=== PATIENT | female | born 1945 | race Caucasian/White ===

== ENCOUNTER 2020-10-03 09:07 | Day surgery (SDC) | payer MEDICARE, OTHER, SELFPAY ==
--- NOTE | 2020-10-03 07:54 | P.OP_ITS ---
Operative Date/Time/Diagnoses Date of procedure: 10/03/20 Time of procedure: 10:45 Procedure & Clinicians Procedure: Preoperative diagnoses: 1. Complex left significant nuclear sclerotic cataract with small pupil and poor red reflex. Capsular dye needed 2. Astigmatism which is to be corrected with a toric intraocular lens implant. 3. Hypothyroidism 4. Rosacea 5. Osteoarthritis Postoperative diagnoses: 1.Complex left Cataract removal with phacoemulsification with toric posterior chamber intraocular lens implant placed. Procedure: Phacoemulsification with posterior chamber toric intraocular lens implant. Surgeon: Theresa Maria MD Complications: None Specimen: None Implant: [id number] [place] 120 Blood loss: None Anesthesia: Retrobulbar with monitored standby Description of procedure: Patient presents with a complaint of decreased vision due to cataract which is affecting activities of daily living both her driving and reading. The patient wants surgery to improve vision and astigmatism. She had previous right cataract surgery more than 10 years ago. She chooses a distance astigmatism correcting intraocular lens. She understands the extra risk of surgery during the COVID-19 epidemic and wishes to proceed. She has tested negative for COVID-19 via active iris within 72 hours of the procedure. She is a relatively poor dilator and has a poor red reflex and therefore it was felt best to use capsular dye for extra safety during surgery. She also has a very deep set eye. The patient was taken to the operating room and proparacaine drops placed. Indelible ink dillard were placed at the 90 and 180 degree meridian. The patient was placed on the operating room table and given IV sedation. A retrobulbar block insert consisting of 6 cc of 2% xylocaine without epinephrine mixed half and half with 0.5% Marcaine with 1 cc of hyaluronidase added is placed between the medial and lateral 1/3 of the inferior orbital rim. The eye is manually massaged for 30 sec, prepped using Betadine solution, and draped in the usual sterile fashion. Temporal approach was made, a 1 mm side-port incision was made 90? from the proposed corneal wound. Phenylephrine 1.5% mixed with 1% xylocaine 0.2 cc was placed into the anterior chamber. An air bubble was placed followed by visidyne capsular dye. BSS was used to irrigate out the air bubble. Viscoat followed by Healon was then placed. A 2.6 mm clear incision with a 2.6 mm blade was timmy candice at the 170 degree meridian. A 360 degree capsulorrhexis style capsulotomy was then performed with a cystitome needle on a Healon greatly aided by the capsular dye and was due to the dye also able to extend capsulorrhexis to extent of her pupil dilation of about 5.5 mm. Hydrodelineation and hydrodissection were performed. The phacoemulsification unit is introduced, and sculpting used to groove the central lens. It is then removed in chopping mode. Epi nucleus is removed with epinuclear mode and irrigation aspiration was used to remove the peripheral cortex. The posterior capsule is polished. The intraocular lens is selected, inspected, power confirmed, and placed in the posterior chamber at the desired meridian of 120?. The pupil was not constricted. The wound was stromally hydrated and tested for leaks, there was none and it was left sutureless. Vigamox 0.1 cc was placed into the anterior chamber. Kenalog 0.2 cc was placed in the superior subconjunctival space. A drop of antibiotic and was placed and the eye was patched and shielded. The patient was stable and returned to the recovery room in excellent condition. Dictated by: Theresa Maria MD Copy to: [facility] Same procedure as scheduled: Yes
--- NOTE | 2020-10-03 07:54 | PM.PREOP ---
Pre-operative Note COVID-19 COVID-19 status: Negative Result date/Date tested (Pos, Neg/Pending): 10/03/20 Interval Note History & Physical reviewed/Exam performed by Physician: Yes Changes to H&P: No H&P completed within 30 days and has changed as indicated here:: Rapid COVID test performed morning of surgery and was negative.
[2020-10-03 09:58] VITALS: BMI 20.1
[2020-10-03] MEDS: PROPARACAINE 0.5% OPHTH SOL 2 DROPS EYE-OP ×2 (10:13→11:20)
[2020-10-03] MEDS: CATARACT EYE COMPOUND (10 DROPS/SYRINGE) 3 DROPS EYE-OP (10:14)
[2020-10-03 10:22] LABS: COVID19 -Nasal RAPID Negative (Negative)
[2020-10-03 10:44] VITALS: BP 125/66; PULSE 56; RESP 14; TEMP 36.1; O2SAT 97
[2020-10-03 10:49] VITALS: BMI 20.1
[2020-10-03] MEDS: CHONDROIDTIN/SOD HYALURONATE 1.05 ML SYRINGE INTRAOCULA (11:17)
[2020-10-03] MEDS: TRIAMCINOLONE 50 MG/5 ML VIAL INJ (11:18)
[2020-10-03] MEDS: MOXIFLOXACIN INJ 4 MG/0.8 ML VIAL 0.5 MG EYE-OP (11:18)
[2020-10-03] MEDS: ERYTHROMYCIN OPHTH 1 GM OINT 1 APPLIC EYE-LEFT (11:18)
[2020-10-03] MEDS: PHENYLEPHRINE/LIDOCAINE VIAL (OR) 0.2 ML EYE-OP (11:18)
[2020-10-03] MEDS: HYALURONATE SODIUM 10 MG/ML SYRINGE INJ (11:18)
[2020-10-03] MEDS: BALANCED SALT IRRIG SOLN NO.2 500 ML, EPINEPHrine 1 MG IRR (11:19)
[2020-10-03] MEDS: LIDOCAINE 2% 4 ML, BUPIVACAINE 0.5% (PF) 4 ML, HYALURONIDASE 150 UNIT INJ (11:20)
[2020-10-03 11:51] VITALS: BP 109/63; PULSE 55; RESP 14; TEMP 36.8; O2SAT 100
== END 2020-10-03 12:03 | disposition home or self-care (01) ==
PROVIDERS: PCP Registered Nurse; Referring Provider Ophthalmology; Visit Provider Ophthalmology
PROC: (CPT 66984; principal; 2020-10-03 10:45)
DX: H25.12 Age-related nuclear cataract, left eye (principal); Z20.822 Contact with and (suspected) exposure to COVID-19; H52.202 Unspecified astigmatism, left eye; E03.9 Hypothyroidism, unspecified
CPT/HCPCS: 66984; 87635; J0171; J2704; J3301; J3470; V2787

== ENCOUNTER → 2023-04-07 09:35 | Outpatient (CLI) | payer MEDICARE, OTHER, SELFPAY ==
--- NOTE | 2023-04-07 09:40 | DI.RAD.S_ITS ---
PROCEDURE: FL BARIUM SWALLOW W SPEECH INDICATIONS: Dysphagia, unspecified COMPARISON: None. TECHNIQUE: Examination was conducted in conjunction with speech pathology per standard protocol. In the lateral projection, filming was performed of the patient swallowing. AP projection filming may also be performed with patient swallowing. COMPARISON: FINDINGS: Function: No laryngeal penetration or aspiration. No pathologic vallecular pooling. Morphology: No cricopharyngeal bar is identified. No cervical esophageal webs. No Zenker's diverticulum. No strictures. IMPRESSION: No laryngeal penetration or aspiration. Please see separate speech pathologist's report. Dictated by: Ata Chand M.D. on 04/07/2023 at 13:27 Approved by: Ata Chand M.D. on 04/07/2023 at 13:28
--- NOTE | 2023-04-08 13:12 | ST.SWALLOW ---
Visit Care Team Role Provider Type HILTON Jackson Primary Care Provider Non-Staff Specialty: Medical Address: [address] , [place], [address] Email: Derek Alvarado MD Attending Provider Non-Staff Referring Provider Specialty: Internal Medicine Address: [address], [place], [address] Email: Modified Barium Swallow Study [employer] Modified Barium Swallow Study Start: 04/07/23 12:16 Freq: Status: Active Protocol: Document 04/07/23 09:10 CG (Rec: 04/08/23 11:40 CG [id number]) Modified Barium Swallow Study Total Time Visit Start Time 10:00 Visit Stop Time 10:30 Total Visit Minutes 30 Visit Information Visit Number [address] Derek Alvarado Reason for Referral mild sx aspiration/dysphagia Setting Setting Outpatient Care Patient Information Identification Type Name Patient History The pt is a 77-year-old female referred for an MBS by Dr. Derek Alvarado due to mild aspiration symptoms. The pt describes her symptoms as occuring only about once per month, but she wanted to be proactive in evaluating her swallow. She states that sometimes she will have a drink of water and feel that it goes down the wrong tube. This will cause her to cough , which she says resolves the issue. She also states that she occasionally has the sensation of solids being stuck in her throat. She states she usually coughs to try to clear this and it is most often resolved by a liquid wash. Sometimes, she states that food or liquid will come through her nose when trying to cough/clear. The pt states that these symptoms have been present for the last 6-8 months. She does not feel that the symptoms have worsened, but have remained steady. She says she is not sure if certain foods or liquids exacerbate her symptoms more than others. 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 She also reports a history of radiculopathy and pain in her left side, related to degenerative disc disease in her neck. Though she does not have a diagnosis of GERD, she states she suspects it and often will take Tums for heartburn. She denies any history of surgery in the neck or throat, and denies any history of neurological diagnoses. Subjective Observations The pt arrived on time to her appointment, which she attended independently. She was alert, oriented, communicative, and cooperative throughout the assessment. She was able to easily understand and follow multi- step directions throughout assessment. No baseline symptoms of note (no cough, tremor, s/sx cognitive impairment, etc). Patient Positioning Position View Lat-A/P Imaging Lateral View Textures Administered Trials Presented Thin Liquid via Spoon (IDDSI 0 ),Thin Liquid via Cup (IDDSI 0 ),Mildly Thick Liquid via Spoon (IDDSI 2),Mildly Thick Liquid via Cup (IDDSI 2), Extremely Thick Liquid via Spoon (IDDSI 4),Regular (IDDSI 7) Barium Tablet Yes The IDDSI Framework Protocol: IDDSI.1 Oral Impairment Source: The Modified Barium Swallow Impairment Profile (MBSImP??) Lip Closure No labial escape Tongue Control During Bolus Hold Posterior escape of less than half of bolus Bolus Transport/Lingual Motion Slowed tongue motion Oral Residue Residue collection on oral structures Location Tongue Initiation of Pharyngeal Swallow Bolus head at pyriforms Additional Oral Impairment Observations Of note, the pt demonstrated posterior escape of bolus across multiple trials, particularly with thin consistencies. Tongue motion/ A-P propulsion was typically brisk; however, it was slowed with pudding consistency. Oral residue was present along the posterior tongue blade and base of tongue after the swallow. Swallow initiation was delayed across multiple trials, but was most prominent during larger volume bolus swallows and during sequential swallows. Swallow initiation timing appeared to improve with thicker liquid consistencies and with smaller boluses. Functional implications: Weakened lingual muscles resulted in lingual residue, requiring multiple swallows to fully clear the oral cavity. Posterior escape of the bolus combined with delayed initiation of the pharyngeal swallow resulted in the bolus pooling in the pharynx prior to the pharyngeal swallow. This would have a cascading effect resulting in mild flash penetration during the early swallow due to pooled bolus entering the laryngeal vestibule briefly before being squeexed out at height of the swallow (see Additional Pharyngeal Impairment Observations). Based on pt improved performance with smaller boluses, small sips/reduced bolus size with thin liquids is implicated as a possible compensatory strategy. Pharyngeal Impairment Source: The Modified Barium Swallow Impairment Profile (MBSImP??) Soft Palate Elevation Trace column of contrast between soft palate & pharyngeal wall Laryngeal Elevation Part.sup.move.thyroid cart/ part.approx.arytenoids to epiglot.petiole Anterior Hyoid Excursion Partial anterior movement Epiglottic Movement Complete inversion Laryngeal Vestibular Closure Complete; no air/contrast in laryngeal vestibule Pharyngeal Stripping Wave Present - diminished Pharyngoesophageal Segment Opening Partial distention/partial duration; partial obstruction of flow Tongue Base Retraction Narrow column of contrast/air betwn tongue base & post. pharyngeal wall Pharyngeal Residue Collection of residue within/ on pharyngeal structures Location Diffuse (>3 areas) Additional Pharyngeal Impairment Trace column of contrast was Observations observed between soft palate and pharyngeal wall during consecutive swallows of thin liquid. This did not appear to impact swallow function; however, it is possible that this is related to pt's symptom of bolus coming out of her nose (MBS data can be extrapolated to infer that bolus escape to nasopharynx may have occured with a large bolus). Laryngeal elevation early in the swallow was mildly diminished, likely resulting in part from delayed pharyngeal swallow initiation . Contrast was observed to briefly move inferior to the epiglottis before being squeezed out of the laryngeal vestibule at the height of the swallow. Ultimately, airway protection was intact at the height of the swallow. However, after the swallow, residue from the vallecula was observed to flow inferiorly to the pyriform sinuses, where it again entered under the epiglottis after the swallow. Of note, tongue base retraction was moderately impaired, resulting in vallecular residue that flowed into the pyriforms after the swallow and was then observed to penetrate inferior to the epiglottis during subsequent swallows. This was most marked on consecutive swallows of large boluses. Functional implications: No aspiration was observed across trials. Penetration was observed most notably during consecutive swallows of thin liquids, though airway protection was intact. Penetration appears to be the result of pharyngeal residue, which likely resulted from weakened tongue base retraction. Given that this weakness is an underlying root cause of multiple impairments observed, a swallow exercise regimen with an emphasis on strengthening base of tongue is recommended. A/P View The IDDSI Framework Protocol: IDDSI.1 A/P View Observations Esophageal Clearance Upright Position Esophageal retention Esophageal Function Slowed Clearing Additional A-P Observations Esophageal retention was observed, particularly in the region of the aortic arch. Barium tablet was observed to move efficiently through the esophagus to the stomach. Clinical Impressions Dysphagia Type Oral,Pharyngeal Findings Pt presents with mild oropharyngeal dysphagia characterized most notably by tongue base weakness and by delayed swallow initiation. These resulted in pharyngeal residue in the vallecula and epiglottis. During sequential swallows or with large boluses, pharyngeal residue was observed to move inferior to the surface of the epiglottis, briefly penetrating the laryngeal vestibule, though no aspiration was observed. Based on these observations along with patient interview, the following are recommended: 1. Small sips, one at a time to reduce s/sx dysphagia which are most pronounced on large and/or consecutive boluses. 2. Referral to GI based on GERD symptoms. 3. Referral for outpatient speech therapy to develop swallow exercise program targeting lingual weakness and delayed swallow initiation. Rehabilitation Potential Excellent Patient Appropriate for Therapy Yes Recommendations Diet Liquids Order Thin (IDDSI 0) Diet Order Regular (IDDSI 7) Medication Recommendation As Tolerated Aspiration Precautions Recommended Precautions Small Bites/Sips Treatment Plan Therapy Recommendations Outpatient Speech Therapy Recommended Referrals GI Consult Therapy Strategy Recommendations Sitting Upright (90 deg),Small Bites and Sips Short Term Goals 1. Pt will establish care with outpatient speech therapy for development of exercise program for dysphagia. 2. Consider referral to GI based on GERD symptoms. Placement Recommendation After Discharge Home
== END ==
PROVIDERS: PCP Registered Nurse; Referring Provider Internal Medicine; Visit Provider Internal Medicine
DX: R13.10 Dysphagia, unspecified (principal)
CPT/HCPCS: 74230; 92611

== ENCOUNTER → 2024-08-03 12:12 | Outpatient (CLI) | payer MEDICARE, OTHER, SELFPAY ==
--- NOTE | 2024-08-03 | DI.RAD.S_ITS ---
PROCEDURE: FL BARIUM SWALLOW INDICATIONS: DYSPHAGIA COMPARISON: [facility], , [place] BARIUM SWALLOW, 04/07/2023, 10:06. FINDINGS: Function: There is normal esophageal peristalsis. No elicited gastroesophageal reflux. There is normal transit of a calibrated barium tablet through the esophagus into the stomach. Morphology: Air-contrast images demonstrate normal mucosal morphology. Single contrast views show no esophageal strictures, extrinsic mass effects, or diverticula. Limited images of the stomach demonstrate normal appearance. IMPRESSION: Negative. Dictated by: Joseph Box M.D. on 08/03/2024 at 13:48 Approved by: Joseph Box M.D. on 08/03/2024 at 13:48
== END ==
PROVIDERS: PCP Family Medicine; Visit Provider Radiology Neuroradiology
DX: R13.10 Dysphagia, unspecified (principal)
CPT/HCPCS: 74220